=== PATIENT | female | born 1935 | race Caucasian/White ===

== ENCOUNTER 2016-12-04 08:01 | Day surgery (SDC) | payer MEDICARE, OTHER ==
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
[2016-12-04] VITALS (11 sets, daily range): BP systolic 103–131; BP diastolic 50–76; PULSE 60–87; RESP 8–18; O2SAT 93–99
[~2016-12-04] VITALS: Ht 157.5 cm; Wt 62.5 kg
[2016-12-04] MEDS: Lactated Ringer's 1,000 ML IV SCH ×2 (06:00→10:33)
[~2016-12-04 08:01] MED LIST: AMLO2.5T PO; ASPI-973 PO; CALC1CAP26 PO; CHOL100045 PO; CITA20TA11 PO; CYAN50002 SL; Clindamycin 900 mg/50 mL D5W IV ONE; FERR-83 PO; FLUT9.9S NS; HYDR-4106 TP; HYDR12.5 PO; LAMO25TA PO; LEVO50TA6 PO; LIP40 PO; LORA10CA PO; MULT-1018 PO; PRAM0.5T3 PO; PSYL1CAP3 PO
[2016-12-04] MEDS ORDERED: Propofol 10,000 mCg/mL 20 mL Inj ONE (08:02)
[2016-12-04] MEDS ORDERED: Dexamethasone 4 mg/mL Inj ONE (08:02)
[2016-12-04] MEDS ORDERED: Phenylephrine/NS 100 mCg/mL 10 mL Syringe IVPUSH ONE (08:02)
[2016-12-04] MEDS ORDERED: fentaNYL-PF 50 mCg/mL 2 mL Inj ONE (08:02)
[2016-12-04] MEDS ORDERED: Ondansetron 2 mg/mL 2 mL Inj ONE (08:02)
[2016-12-04] MEDS ORDERED: Lactated Ringer's 1,000 ML IV SCH (11:36)
[2016-12-04] MEDS ORDERED: Lactated Ringer's 500 ML IV PRN (11:36)
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
[2016-12-04] MEDS ORDERED: MetoCLOpramide 5 mg/mL 2 mL Inj IVPUSH PRN (11:40)
[2016-12-04] MEDS ORDERED: EPHEDrine Sulfate 50 mg/mL Inj IVPUSH PRN (11:40)
[2016-12-04] MEDS ORDERED: HYDROmorphone 1 mg/mL Inj IVPUSH PRN (11:40)
[2016-12-04] MEDS ORDERED: Dexamethasone 4 mg/mL Inj IVPUSH PRN (11:40)
[2016-12-04] MEDS ORDERED: Phenylephrine 10,000 mCg/mL Inj IVPUSH PRN (11:40)
[2016-12-04] MEDS ORDERED: Ondansetron 2 mg/mL 2 mL Inj IVPUSH PRN (11:40)
[2016-12-04] MEDS ORDERED: fentaNYL-PF 50 mCg/mL 2 mL Inj IVPUSH PRN (11:40)
--- NOTE | 2016-12-04 12:14 | PCM.ANEP1 ---
Post Anesthesia Phase 1 PACU Phase 1 Assessment Vital Signs Vital Signs Date Time Temp Pulse Resp B/P Pulse Ox O2 Delivery O2 Flow Rate FiO2 12/04/16 08:38 36.4 73 16 124/76 99 Room Air Anesthetic Administered: GA Level of Alertness: Sleepy, easy to arouse MIRANDA's with Equal Strength: Yes Pain: No Nausea or Vomiting: No Oxygen Delivery: Room Air Lungs: Clear to Auscultation Summary Pacer rep here to reprogram pacer Kendell Park MD Dec 04, 2016 12:14
[2016-12-04] MEDS ORDERED: HYDROcodone-APAP 5-325 mg Tablet PO PRN (12:20)
--- NOTE | 2016-12-04 12:53 | PCM.ANEP2 ---
Post Anesthesia Evaluation ASA/CMS Post Anesthesia VS in Patient's Normal Range?: Yes Resp Stable; Airway Patent?: Yes CV Function & Hydration Stable: Yes Mental Status Recovered?: Yes Pain control Satisfactory?: Yes N/V Control Satisfactory?: Yes Kendell Park MD Dec 04, 2016 12:53
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
== END 2016-12-04 23:59 | disposition home or self-care (01) ==
LOC: SAS 08:01
PROVIDERS: ATTEND Plastic Surgery
DX: L90.5 Scar conditions and fibrosis of skin (principal); S21.201A Unspecified open wound of right back wall of thorax without penetration into thoracic cavity, initial encounter; S31.103A Unspecified open wound of abdominal wall, right lower quadrant without penetration into peritoneal cavity, initial encounter; I10 Essential (primary) hypertension; I65.23 Occlusion and stenosis of bilateral carotid arteries; E78.5 Hyperlipidemia, unspecified; E03.9 Hypothyroidism, unspecified; G25.81 Restless legs syndrome; F31.9 Bipolar disorder, unspecified; G47.33 Obstructive sleep apnea (adult) (pediatric); K21.9 Gastro-esophageal reflux disease without esophagitis; M19.90 Unspecified osteoarthritis, unspecified site; Z95.0 Presence of cardiac pacemaker; Z86.73 Personal history of transient ischemic attack (TIA), and cerebral infarction without residual deficits; Z79.82 Long term (current) use of aspirin; Z96.643 Presence of artificial hip joint, bilateral; Z85.3 Personal history of malignant neoplasm of breast; Z87.828 Personal history of other (healed) physical injury and trauma
CPT/HCPCS: 11402; 11406; 13101; 13102; 15200; J1100; J2370; J2405; J3010; J7120